=== PATIENT | male | born 1935 | race Caucasian/White ===

== ENCOUNTER 2021-06-06 09:15 | Emergency (ER) | payer MEDICARE, OTHER ==
[~2021-06-06] VITALS: Ht 180.3 cm; Wt 90.0 kg
[~2021-06-06 09:15] MED LIST: AMLO-258 PO; LOSA50TA37 PO; [UNRECOGNIZED DRUG - REMARK] PO
[2021-06-06] MEDS ORDERED: ACETAMINOPHEN 500 MG TABLET PO ONE (10:30)
[2021-06-06 10:35] VITALS: BP 150/69
== END 2021-06-06 12:00 | disposition home or self-care (01) ==
LOC: EMS 09:15
DX: S20.211A Contusion of right front wall of thorax, initial encounter (principal); E11.9 Type 2 diabetes mellitus without complications; I10 Essential (primary) hypertension; Z86.73 Personal history of transient ischemic attack (TIA), and cerebral infarction without residual deficits; V49.9XXA Car occupant (driver) (passenger) injured in unspecified traffic accident, initial encounter; Y93.89 Activity, other specified; Y92.488 Other paved roadways as the place of occurrence of the external cause; Y99.8 Other external cause status
CPT/HCPCS: 71111; 71120; 99284; Z7502; Z7610

== ENCOUNTER 2024-10-02 14:39 | Emergency (ER) | payer MEDICARE, OTHER ==
[~2024-10-02] VITALS: Ht 172.7 cm; Wt 86.4 kg
[~2024-10-02 14:39] MED LIST changes: +LOSA-382 PO; -LOSA50TA37 PO
[2024-10-02 14:51] VITALS: TEMP 97.8
[2024-10-02] MEDS: ACETAMINOPHEN 500 MG TABLET PO ONE (15:58)
[2024-10-02] MEDS ORDERED: ACET-3385 PO (17:25)
[2024-10-02 17:53] VITALS: BP 123/56; PULSE 73; RESP 16; O2SAT 98
== END 2024-10-02 18:25 | disposition home or self-care (01) ==
LOC: EMS 14:39
DX: S46.001A Unspecified injury of muscle(s) and tendon(s) of the rotator cuff of right shoulder, initial encounter (principal); E11.9 Type 2 diabetes mellitus without complications; I10 Essential (primary) hypertension; Z79.899 Other long term (current) drug therapy; Z86.73 Personal history of transient ischemic attack (TIA), and cerebral infarction without residual deficits; Z98.890 Other specified postprocedural states; X58.XXXA Exposure to other specified factors, initial encounter; Y93.89 Activity, other specified; Y92.89 Other specified places as the place of occurrence of the external cause; Y99.8 Other external cause status
CPT/HCPCS: 99283

== ENCOUNTER 2025-03-08 08:18 | Emergency (ER) | payer MEDICARE, OTHER ==
[~2025-03-08] VITALS: Ht 170.2 cm; Wt 90.9 kg
[~2025-03-08 08:18] MED LIST changes: +ACET-3385 PO
[2025-03-08 08:26] VITALS: BP 141/94; PULSE 84; RESP 18; TEMP 98.2; O2SAT 99
[2025-03-08] MEDS ORDERED: FURO40TA5 PO (08:34)
[2025-03-08] MEDS ORDERED: EMPA25TA3 PO (08:34)
[2025-03-08] MEDS ORDERED: CARV3.1231 PO (08:34)
[2025-03-08] MEDS ORDERED: SACU1TAB PO (08:34)
== END 2025-03-08 09:00 | disposition home or self-care (01) ==
LOC: EMS 08:18
DX: N52.9 Male erectile dysfunction, unspecified (principal); E11.9 Type 2 diabetes mellitus without complications; I10 Essential (primary) hypertension; Z86.73 Personal history of transient ischemic attack (TIA), and cerebral infarction without residual deficits; Z79.899 Other long term (current) drug therapy
CPT/HCPCS: 82962; 99282; Z7502